=== PATIENT | female | born 1990 | race Caucasian/White ===

== ENCOUNTER 2018-09-07 19:19 | Emergency (ER) | payer OTHER ==
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
[2018-09-07 20:49] VITALS: BP 110/70
== END 2018-09-07 20:47 | disposition home or self-care (01) ==
LOC: ED 19:19
DX: S09.90XA Unspecified injury of head, initial encounter (principal); V43.62XA Car passenger injured in collision with other type car in traffic accident, initial encounter; Y92.410 Unspecified street and highway as the place of occurrence of the external cause; Z88.0 Allergy status to penicillin
CPT/HCPCS: 99282